=== PATIENT | male | born 1965 | race African-American/Black ===

== ENCOUNTER 2017-07-02 08:45 | Inpatient (IN) | payer BC ==
[2017-07-16] MEDS ORDERED: CEFAZOLIN/Water 2 GM/20 ML SYRINGE ONE (05:51)
[2017-07-16] MEDS ORDERED: Vancomycin HCl 1.5 GM in Sodium Chloride 0.9% 250 ML 300 ML IVPB SCH (06:00)
[2017-07-16] MEDS ORDERED: Fentanyl 100 MCG/2 ML VIAL ONE ×2 (06:17→06:54)
[2017-07-16] MEDS ORDERED: Midazolam HCl 2 mg/2 ml Vial ONE (06:17)
[2017-07-16] MEDS ORDERED: Bupivacaine HCl 0.5%/Epinephrine 1:200,000/PF 30 ml Vial ONE (06:54)
[2017-07-16] MEDS ORDERED: Ondansetron HCl/PF 4 MG/2 ML Vial IVP PRN ×6 (06:56→07:55)
[2017-07-16] MEDS ORDERED: Promethazine HCl 25 MG/ML VIAL SLOW IVP PRN ×4 (06:56→07:55)
[2017-07-16] MEDS ORDERED: Promethazine HCl 25 MG/ML VIAL IM PRN ×6 (06:56→07:55)
[2017-07-16] MEDS ORDERED: Bupivacaine 0.25% 10 ML VIAL EPIDURAL PRN (07:00)
[2017-07-16] MEDS ORDERED: HYDROcodone/Acetaminophen 5/325 mg Tablet PO PRN ×2 (07:00)
[2017-07-16] MEDS ORDERED: diphenhydrAMINE 25 MG CAP PO PRN ×2 (07:00→07:01)
[2017-07-16] MEDS ORDERED: diphenhydrAMINE 50 MG/ML VIAL IM PRN (07:00)
[2017-07-16] MEDS ORDERED: Hydrocerin (Eucerin) Cream 120 gm Jar TOP PRN (07:00)
[2017-07-16] MEDS ORDERED: Promethazine HCl 25 MG SUPP PR PRN (07:00)
[2017-07-16] MEDS ORDERED: Zolpidem Tartrate 5 MG TAB PO PRN ×2 (07:00→07:01)
[2017-07-16] MEDS ORDERED: traMADol HCl 50 MG TAB PO PRN ×3 (07:00→07:01)
[2017-07-16] MEDS ORDERED: Naloxone HCl 0.4 mg/ml Vial IV PRN (07:00)
[2017-07-16] MEDS ORDERED: diphenhydrAMINE 50 MG/ML VIAL IVP PRN (07:00)
[2017-07-16] MEDS ORDERED: fentaNYL Citrate/PF 1,250 MCG, Bupivacaine 25 ML in Sodium Chloride 0.9% 250 ML 200 ML EPIDURAL SCH (07:00)
[2017-07-16] MEDS ORDERED: Naloxone HCl 0.4 mg/ml Vial IVP PRN (07:00)
[2017-07-16] MEDS ORDERED: HYDROcodone/Acetaminophen 10/325 mg Tablet PO PRN ×2 (07:01)
[2017-07-16] MEDS ORDERED: Fentanyl 100 MCG/2 ML VIAL SLOW IVP PRN ×2 (07:01)
[2017-07-16] MEDS ORDERED: Acetaminophen 325 MG TAB PO PRN (07:01)
[2017-07-16] MEDS ORDERED: Tranexamic Acid 1,000 MG in Sodium Chloride 0.9% 100 ML IVPB SCH (07:15)
[2017-07-16] MEDS ORDERED: Meperidine HCl/PF 25 MG/ML VIAL ONE (09:29)
--- NOTE | 2017-07-16 10:10 | OP ---
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 OPERATIVE PROCEDURE: Press-fit left total hip arthroplasty. SURGEON: Hector Lau M.D. GRIDDLE COOK: Arturo Em PA-C ANESTHESIA: General via endotracheal tube augmented with indwelling epidural. COMPONENTS USED: [employer], Accolade pressfit size 3 hip stem with a Tritanium 54 mm press fit acetabular shell, 36 mm 10 degree polyethylene fixed bearing insert, 36 mm ceramic femoral head w ith a standard offset. FINDINGS: End-stage severe degenerative bicompartmental disease, bone on bone arthrosis, periarticul ar osteophyte formation, large serous effusion, hypertrophic synovium, and hypertrophic capsule. ESTIMATED BLOOD LOSS: 200 mL. DRAINS: None. SPECIMENS: None. COMPLICATIONS: None. COUNTS: Correct. INDICATIONS FOR SURGERY: Wes is a 51-year-old -[place] male who apparently had a nondispl aced hip fracture some years ago in 2004 and was treated conservatively. He subsequently developed e nd-stage bicompartmental arthrosis of the left hip and he has failed conservative management and elec gab to proceed with total hip arthroplasty as a definitive treatment of pain. PROCEDURE IN DETAIL: After informed consent was obtained in the preoperative holding area, the patie nt was taken to the operative suite where general anesthesia was induced. The patient was then posit ioned in the lateral decubitus position. The hip was then prepped and draped in usual sterile fashio n. The patient received preoperative antibiotics. Prior to incision, time-out was called and all me mbers of the surgical team agreed upon site, surgeon, and patient. After this, a longitudinal incisi on was made directly over the trochanter, noted by palpation extending 2 fingerbreadths above and bel ow the trochanter. The deeper subcutaneous layer was undermined with Bovie electrocautery. The ilio tibial band was encountered and incised sharply and the plane below this was developed bluntly. A eliazar retractor was placed to hold this opened. The lateral aspect of the trochanter and the abduct or muscles were encountered and then reflected anteriorly off the trochanter using Bovie electrocaute ry. Once this was completed, the anterior capsule was then encountered and identified and copious ca psulotomy was carried out, exposing the femoral neck and head. Dislocation maneuver was then performe d and an in situ provisional neck cut was then made using the oscillating saw. Attention was then tu rned to acetabular preparation and sequential reaming was carried out up to the appropriate diameter and a trial was then malleted into place with good firm resistance and no pullout. The permanent willow tabular shell was then malleted squarely into place, as was the appropriate liner. Once completed, t he wound was copiously irrigated and attention was then turned to femoral preparation. Flexion and ex ternal rotation was performed of the exposed thigh and femoral elevators were then placed at the prox imal aspect of the wound. Canal finder was used to establish the length of the canal and sequential reaming was carried out, followed by broaching. Once the appropriate stability was established with the trial broaches with both flexion, extension and rotational stability, we did trial with neutral a nd 2 mm offset incremental necks. Once the appropriate size was decided upon, with good stability no gab with flexion, extension, internal and external rotation and shuck being negative, we removed the femoral trial broach and malletted into place the permanent prosthesis with good firm fit, which was also stable to rotation. Again, the hip felt very stable to flexion, extension, internal and externa l rotation. Leg lengths appeared near anatomic clinically and we were quite happy with prosthesis pl acement. Copious irrigation was then carried out through the entirety of the wound. Primary closure of the abductors was accomplished with interrupted #2 Vicryl [id number] stitches and the IT ban d was then closed with interrupted #2 Vicryl, oversewn with a #2 running barbed Quill stitch. Subcut aneous fascia was closed with running barbed Quill stitch and a subcuticular Monocryl barbed Quill st itch was used for skin closure and augmented with skin cement. A sterile dressing was applied. The p rocedure was terminated without any complication. All counts were correct. The patient was awakened in the operative suite and taken to the recovery room in stable condition.
[2017-07-16] MEDS ORDERED: Meperidine HCl/PF 25 MG/ML VIAL SLOW IVP PRN (10:40)
--- NOTE | 2017-07-16 11:14 | RAD ---
LEFT HIP 2 VIEWS: Date: 07/16/17 HISTORY: 51-year-old male with history of postop total hip. FINDINGS: Total hip replacement changes are noted. No dislocation or periprosthetic fracture. IMPRESSION: Unremarkable postop left total hip replacement. POS: [facility]
[2017-07-16 12:06] VITALS: BMI 40.7
[2017-07-16] MEDS: Senokot S 8.6-50 MG TAB PO SCH ×2 (13:21→22:24)
[2017-07-16] MEDS: Multivitamin W/ Minerals 1 TAB PO SCH (13:21)
[2017-07-16] MEDS: Aspirin 325 MG TAB PO SCH ×2 (13:21→22:24)
[2017-07-16] MEDS: Ferrous Gluconate 324 MG TAB PO SCH ×2 (13:21→22:24)
[2017-07-16] MEDS: Sodium Chloride 0.9% 1,000 ML IV SCH ×2 (13:21→18:19)
[2017-07-16] MEDS: CEFAZOLIN/Water 2 GM/20 ML SYRINGE SLOW IVP SCH ×2 (14:27→22:26)
--- NOTE | 2017-07-16 16:34 | PDOC.PN ---
- Subjective Encounter Start Date: 07/16/17 Encounter Start Time: 15:00 Patient is seen today Post op Left Total hip replacmeent, Pt is seen in His room, alert and oriented on Fentanyl [employer]ARK ACTIVITIES COORDINATOR, stable, No other concenr snoted. Patient Is using Incentive spiromtery, Hospitalist is consulted for Medical management. - Objective MAR Reviewed: Yes Vital Signs & Weight: Vital Signs (12 hours) Temp Pulse Resp BP Pulse Ox 07/16/17 10:45 97.8 F 67 16 144/83 H 100 Weight Weight 276 lb I&O: 07/15/17 07/16/17 07/17/17 06:59 06:59 06:59 Intake Total 200 Output Total 450 Balance -250 Radiology Reviewed by me: Yes Phys Exam - Physical Examination HEENT: PERRLA, moist MMs Neck: no nodes, no JVD Respiratory: no wheezing, no rales Cardiovascular: RRR, no significant murmur Gastrointestinal: soft, non-tender Musculoskeletal: no edema, pulses present Neurological: non-focal, normal sensation Dx/Plan (1) Status post total hip replacement, left Code(s): Z96.642 - PRESENCE OF LEFT ARTIFICIAL HIP JOINT Status: Acute Comment: Will continue to monitor for any post Op complication with Dr. Lau for infection or bleeding and Drop in Blood presssures. (2) Moderate dehydration Code(s): E86.0 - DEHYDRATION Status: Acute Comment: Will encourage patient for oral hydration, continue on IV ringers lactate. (3) Constipation Code(s): K59.00 - CONSTIPATION, UNSPECIFIED Status: Acute Comment: Will do laxatives Colace dailye BID. Will encourage mobility with pt/OT. - Plan cont current plan of care, plan discussed w/ family, PT/OT, social work program coordinator, respiratory therapy, incentive spirometry, out of bed/ambulate, DVT proph w/ lovenox * . - Discharge Day Encounter end time: 15:45 Review of Systems - Review of Systems Eyes: negative: Pain, Vision Change, Conjunctivae Inflammation, Eyelid Inflammation, Redness, Other ENT: negative: Ear Pain, Ear Discharge, Nose Pain, Nose Discharge, Nose Congestion, Mouth Pain, Mouth Swelling, Throat Pain, Throat Swelling, Other Respiratory: negative: Cough, Dry, Shortness of Breath, Hemoptysis, SOB with Excertion, Pleuritic Pain, Sputum, Wheezing Cardiovascular: negative: chest pain, palpitations, orthopnea, paroxysmal nocturnal dyspnea, edema, light headedness, other Gastrointestinal: negative: Nausea, Vomiting, Abdominal Pain, Diarrhea, Constipation, Melena, Hematochezia, Other Genitourinary: negative: Dysuria, Frequency, Incontinence, Hematuria, Retention , Other Musculoskeletal: negative: Neck Pain, Shoulder Pain, Arm Pain, Back Pain, Hand Pain, Leg Pain, Foot Pain, Other Skin: negative: Rash, Lesions, Zach, Bruising, Other - Medications/Allergies Allergies/Adverse Reactions: Allergies Allergy/AdvReac Type Severity Reaction Status Date / Time No Known Allergies Allergy Verified 07/09/17 09:51 Medications: Current Medications Acetaminophen (Tylenol) 650 mg PO Q4H PRN PRN Reason: ORTEGA/ T > 101F; Mild Pain (1-3) Hydrocodone Bitart/Acetaminophen ([place] 5/325) 1 tab PO Q4H PRN PRN Reason: Mild Pain 0-3 Hydrocodone Bitart/Acetaminophen ([place] 5/325) 2 tab PO Q4H PRN PRN Reason: For Moderate Pain 4-6 Aspirin (Aspirin) 325 mg PO BID [facility] Last Admin: 07/16/17 13:21 Dose: Not Given Bupivacaine HCl (Marcaine) 5 ml EPIDURAL ONE PRN PRN Reason: UNCONTROLLED PAIN Stop: 07/26/17 07:01 Cefazolin Sodium (Ancef) 2 gm SLOW IVP Q8HR [facility] Stop: 07/16/17 22:01 Last Admin: 07/16/17 14:27 Dose: 2 gm Diphenhydramine HCl (Benadryl) 25 mg PO Q3H PRN PRN Reason: Itching Diphenhydramine HCl (Benadryl) 25 mg IM Q3H PRN PRN Reason: Itching Diphenhydramine HCl (Benadryl) 25 mg IVP Q3H PRN PRN Reason: Itching Diphenhydramine HCl (Benadryl) 25 mg PO Q6H PRN PRN Reason: Itching Emollient Cream (Hydrocerin Cream) 0 gm TOP PRN PRN PRN Reason: Itching Ferrous Gluconate (Fergon) 324 mg PO BID [facility] Last Admin: 07/16/17 13:21 Dose: Not Given Fentanyl Citrate 1,250 mcg/Bupivacaine HCl 25 ml/ Sodium Chloride 250 mls @ 8 mls/hr EPIDURAL INF [facility] Sodium Chloride (Normal Saline 0.9%) 1,000 mls @ 100 mls/hr IV .Q10H [facility] Last Admin: 07/16/17 13:21 Dose: Not Given Iron/Minerals/Multivitamins (Theragran M) 1 tab PO DAILY [facility] Last Admin: 07/16/17 13:21 Dose: Not Given Ketorolac Tromethamine (Toradol) 30 mg IVP Q6H PRN PRN Reason: Moderate Pain (4-6) Stop: 07/19/17 07:01 Naloxone HCl (Narcan) 0.2 mg IV Q5MIN PRN PRN Reason: RR <=8 OR OBTUNDED/UNAROUSABLE Naloxone HCl (Narcan) 0.1 mg IVP Q15MIN PRN PRN Reason: URINARY RETENTION Ondansetron HCl (Zofran) 4 mg IVP Q6H PRN PRN Reason: Nausea/Vomiting Ondansetron HCl (Zofran) 4 mg IVP Q6H PRN PRN Reason: Nausea/Vomiting Promethazine HCl (Phenergan) 12.5 mg IM Q4H PRN PRN Reason: Nausea Promethazine HCl (Phenergan Suppository) 25 mg UT Q4H PRN PRN Reason: Nausea/Vomiting Promethazine HCl (Phenergan) 12.5 mg IM Q4H PRN PRN Reason: Nausea/Vomiting Senna/Docusate Sodium (Senokot S) 2 tab PO BID [facility] Last Admin: 07/16/17 13:21 Dose: Not Given Sodium Chloride (Flush - Normal Saline) 10 ml IVF PRN PRN PRN Reason: Saline Flush Tramadol HCl (Ultram) 50 mg PO Q6H PRN PRN Reason: Mild Pain 1-3 Tramadol HCl (Ultram) 100 mg PO Q6H PRN PRN Reason: Moderate Pain 4-6 Zolpidem Tartrate (Ambien) 5 mg PO HSPRN PRN PRN Reason: Insomnia
[2017-07-16] MEDS ORDERED: Lidocaine 1% PF 5 ML VIAL ONE (16:43)
[2017-07-16] MEDS ORDERED: Ketorolac Tromethamine 30 MG/ML VIAL ONE (16:43)
[2017-07-16] MEDS ORDERED: Glycopyrrolate 0.2 MG/ML 5 ML SYRINGE ONE (16:43)
[2017-07-16] MEDS ORDERED: PROPOFOL 200 MG/20 ML VIAL ONE (16:43)
[2017-07-16] MEDS ORDERED: Ondansetron HCl/PF 4 MG/2 ML Vial ONE (16:43)
[2017-07-17] MEDS: Sodium Chloride 0.9% 1,000 ML IV SCH ×2 (03:20→15:04)
[2017-07-17 04:23] LABS: Hemoglobin 13.2 g/dL (14.0-18.0); Mean Corpuscular HGB CONC 33.4 g/dL (32.0-36.0); Mean Corpuscular Hemoglobin 30.4 pg (27.0-31.0); Mean Corpuscular Volume 91.2 fl (80.0-94.0); Mean Platelet Volume 9.8 fL (7.4-10.4); Platelet Count 130 thou/uL (130-400); RBC Distribution Width 12.4 % (11.5-14.5); Red Blood Cell (RBC) Count 4.33 mill/uL (4.70-6.10); White Blood Cell (WBC) Count 10.9 thou/uL (4.8-10.8)
[2017-07-17] MEDS: Aspirin 325 MG TAB PO SCH ×2 (08:03→19:43)
[2017-07-17] MEDS: Senokot S 8.6-50 MG TAB PO SCH ×2 (08:03→19:43)
[2017-07-17] MEDS: Ferrous Gluconate 324 MG TAB PO SCH ×2 (08:03→19:43)
[2017-07-17] MEDS: Ketorolac Tromethamine 30 MG/ML VIAL IVP PRN ×2 (08:03→22:30)
[2017-07-17] MEDS: Multivitamin W/ Minerals 1 TAB PO SCH (08:04)
[2017-07-17 23:59] VITALS: TEMP 99
[2017-07-18] MEDS: Sodium Chloride 0.9% 1,000 ML IV SCH ×2 (00:28→13:03)
[2017-07-18 05:12] LABS: Hemoglobin 12.5 g/dL (14.0-18.0); Mean Corpuscular HGB CONC 32.5 g/dL (32.0-36.0); Mean Corpuscular Hemoglobin 29.8 pg (27.0-31.0); Mean Corpuscular Volume 91.5 fl (80.0-94.0); Mean Platelet Volume 9.8 fL (7.4-10.4); Platelet Count 112 thou/uL (130-400); RBC Distribution Width 12.2 % (11.5-14.5); Red Blood Cell (RBC) Count 4.21 mill/uL (4.70-6.10); White Blood Cell (WBC) Count 12.7 thou/uL (4.8-10.8)
[2017-07-18] MEDS: Senokot S 8.6-50 MG TAB PO SCH (07:42)
[2017-07-18] MEDS: Multivitamin W/ Minerals 1 TAB PO SCH (07:42)
[2017-07-18] MEDS: Ferrous Gluconate 324 MG TAB PO SCH (07:42)
[2017-07-18] MEDS: Aspirin 325 MG TAB PO SCH (07:42)
[2017-07-18 08:11] VITALS: BP 149/89
--- NOTE | 2017-07-20 09:16 | PDOC.PN ---
- Subjective Encounter Start Date: 07/17/17 Encounter Start Time: 10:00 Anne Marietent seen today, had Shower this morning, No concern noted, getting ready to go Home. - Objective MAR Reviewed: Yes Vital Signs & Weight: Weight Admit Weight 276 lb Weight 276 lb I&O: 07/19/17 07/20/17 07/21/17 06:59 06:59 06:59 Intake Total 600 Output Total 1500 Balance -900 Result Diagrams: 07/18/17 04:22 Phys Exam - Physical Examination HEENT: PERRLA, moist MMs Neck: no nodes, no JVD Respiratory: no wheezing, no rales Cardiovascular: RRR, no significant murmur Gastrointestinal: soft, non-tender Musculoskeletal: no edema, pulses present Dx/Plan (1) Status post total hip replacement, left Code(s): Z96.642 - PRESENCE OF LEFT ARTIFICIAL HIP JOINT Status: Acute Comment: No post Op complication noted. Pt is sbale to go home from medical stand point. (2) Moderate dehydration Code(s): E86.0 - DEHYDRATION Status: Acute Comment: well hydrated. Will sign off today. (3) Constipation Code(s): K59.00 - CONSTIPATION, UNSPECIFIED Status: Acute Comment: Will do laxatives Colace dailye BID. Will encourage mobility with pt/OT. - Plan cont current plan of care, plan discussed w/ family, PT/OT * . - Discharge Day Encounter end time: 10:35 Review of Systems - Review of Systems Eyes: negative: Pain, Vision Change, Conjunctivae Inflammation, Eyelid Inflammation, Redness, Other ENT: negative: Ear Pain, Ear Discharge, Nose Pain, Nose Discharge, Nose Congestion, Mouth Pain, Mouth Swelling, Throat Pain, Throat Swelling, Other Respiratory: negative: Cough, Dry, Shortness of Breath, Hemoptysis, SOB with Excertion, Pleuritic Pain, Sputum, Wheezing Cardiovascular: negative: chest pain, palpitations, orthopnea, paroxysmal nocturnal dyspnea, edema, light headedness, other Gastrointestinal: negative: Nausea, Vomiting, Abdominal Pain, Diarrhea, Constipation, Melena, Hematochezia, Other Musculoskeletal: negative: Neck Pain, Shoulder Pain, Arm Pain, Back Pain, Hand Pain, Leg Pain, Foot Pain, Other - Medications/Allergies Allergies/Adverse Reactions: Allergies Allergy/AdvReac Type Severity Reaction Status Date / Time No Known Allergies Allergy Verified 07/09/17 09:51
== END 2017-07-18 14:44 | disposition home or self-care (01) | DRG 470 ==
LOC: SJJU 07-16 05:27
PROVIDERS: ADMIT Orthopaedic Surgery; ATTEND Orthopaedic Surgery
PROC: 0SRB04A Replacement of Left Hip Joint with Ceramic on Polyethylene Synthetic Substitute, Uncemented, Open Approach (ICD-10-PCS; principal; 2017-07-16)
DX: M16.12 Unilateral primary osteoarthritis, left hip (principal); E78.5 Hyperlipidemia, unspecified; E86.0 Dehydration; K59.00 Constipation, unspecified
CPT/HCPCS: 36415; 85027; 85610; 85730; G8978-GP-CK; G8979-GP-CI; G8987-GO-CJ; G8988-GO-CI; J0670; J1885; J2001; J2175; J2250; J2405; J2704; J3010; J3370; J3490; J7050

== ENCOUNTER 2017-07-09 09:25 | Outpatient (CLI) | payer BC ==
[2017-07-09 10:48] LABS: Bilirubin Negative (Negative); Blood, Urine Negative (Negative); Clarity CLEAR (Clear); Glucose, Urine (Dipstick) Negative (Negative); Leukocyte Negative (Negative); Nitrite Negative (Negative); Protein, Urine (Dipstick) Negative (Neg-Trace); Specific Gravity, Urine 1.021 (1.002-1.036); Urobilinogen 0.2 mg/dL (0.2-1.0)
[2017-07-09 10:52] LABS: Bacteria/HPF None Seen HPF (None Seen); Hyaline Casts/LPF 0-3 HYALINE CAST LPF (0-3 Hyaline); RBC/HPF 0-3 HPF (0-3); Squamous Epithelial 0-3 HPF (0-3); WBC/HPF 0-3 HPF (0-3)
[2017-07-09 14:02] LABS: Hemoglobin 14.8 g/dL (14.0-18.0); Mean Corpuscular HGB CONC 31.3 g/dL (32.0-36.0); Mean Corpuscular Hemoglobin 29.6 pg (27.0-31.0); Mean Corpuscular Volume 94.3 fl (80.0-94.0); Mean Platelet Volume 10.5 fL (7.4-10.4); Platelet Count 170 thou/uL (130-400); RBC Distribution Width 12.6 % (11.5-14.5); White Blood Cell (WBC) Count 9.3 thou/uL (4.8-10.8)
[2017-07-09 14:20] LABS: Anion Gap 7 mmol/L (10-20); BUN (Urea Nitrogen) 17 mg/dL (8.9-20.6); Calc. Creatinine Clearance 0 mL/min (70-130); Calcium 9.4 mg/dL (7.8-10.44); Carbon Dioxide 30 mmol/L (22-29); Chloride 103 mmol/L (98-107); Estimated GFR-MDRD Greater than 90; Glucose 94 mg/dL (70-105); Potassium 3.8 mmol/L (3.5-5.1); Sodium 136 mmol/L (136-145)
--- NOTE | 2017-07-10 07:56 | EKG ---
Test Reason : Blood Pressure : / mmHG Vent. Rate : 065 BPM Atrial Rate : 065 BPM P-R Int : 208 ms QRS Dur : 098 ms QT Int : 426 ms P-R-T Axes : 044 026 002 degrees QTc Int : 443 ms Normal sinus rhythm Minimal voltage criteria for LVH, may be normal variant Borderline ECG When compared with ECG of 15-FEB-2012 13:41, UT interval has decreased ST no longer elevated in Anterior leads Confirmed by MOUNIKA RODRIGUEZ ([id number]) on 07/10/2017 7:56:06 AM Referred By: MARK Confirmed By:MOUNIKA RODRIGUEZ
--- NOTE | 2017-07-12 12:17 | RAD ---
AP CHEST: History: Pre-operative chest radiograph. FINDINGS/IMPRESSION: The lungs are well aerated. No evidence of active intrathoracic disease seen. No evidence of effusion s, pneumonia, or pneumothorax is seen. POS: [facility]
== END 2017-07-09 09:26 | disposition home or self-care (01) ==
LOC: LABBT 09:25
PROVIDERS: ATTEND Orthopaedic Surgery
DX: Z01.818 Encounter for other preprocedural examination (principal); M16.12 Unilateral primary osteoarthritis, left hip
CPT/HCPCS: 71046; 80048; 81001; 85027; 86850; 86900; 86901; 87081; 93005; 93010

== ENCOUNTER 2020-01-28 07:20 | Outpatient (CLI) | payer BC, OTHER ==
[2020-01-28 10:45] LABS: #Basophils 0.1 10x3/uL (0.0-0.2); #Eosinphils 0.2 10x3/uL (0.0-0.5); #Monocytes 0.8 10x3/uL (0.0-1.1); #Neutrophils 6.9 10x3/uL (1.5-8.4); %Basophils 0.5 % (0.0-2.0); %Eosinophils 2.5 % (0.0-6.0); %Monocytes 7.9 % (0.0-10.0); %Neutrophils 72.7 % (40.0-75.0); Hemoglobin 15.4 g/dL (14.0-18.0); Mean Corpuscular HGB CONC 32.3 G/DL (32.0-36.0); Mean Corpuscular Hemoglobin 28.8 PG (27.0-33.0); Mean Corpuscular Volume 89.3 fl (80.0-100.0); Mean Platelet Volume 12.3 fl (7.4-10.4); Platelet Count 184 10x3/uL (130-400); Red Blood Cell (RBC) Count 5.34 10x6/uL (4.40-5.80); White Blood Cell (WBC) Count 9.5 10x3/uL (4.5-11.0)
[2020-01-28 11:02] LABS: Prothrombin Time 10.9 sec (9.5-12.1)
[2020-01-28 11:41] LABS: Anion Gap 16 mmol/L (10-20); BUN (Urea Nitrogen) 20 mg/dL (8.4-25.7); Calc. Creatinine Clearance 0 mL/min (70-130); Calcium 9.3 mg/dL (7.8-10.44); Carbon Dioxide 25 mmol/L (22-29); Chloride 104 mmol/L (98-107); Estimated GFR-MDRD 89; Glucose 101 mg/dL (70-105); Potassium 4.5 mmol/L (3.5-5.1); Sodium 140 mmol/L (136-145)
[2020-01-28 18:15] LABS: SARS-CoV-2 MS2 Positive; SARS-CoV-2 N Gene Negative; SARS-CoV-2 S Gene Negative; SARS-CoV-2 by NAA Not Detected (NotDetected); SARS-CoV-2 orf1ab Negative
== END 2020-01-28 07:21 | disposition home or self-care (01) ==
LOC: LABBT 07:20
PROVIDERS: ATTEND Orthopaedic Surgery
DX: Z01.812 Encounter for preprocedural laboratory examination (principal); Z20.828 Contact with and (suspected) exposure to other viral communicable diseases; T84.89XA Other specified complication of internal orthopedic prosthetic devices, implants and grafts, initial encounter
CPT/HCPCS: 80048; 85025; 85610; 87081; 87635; U0003

== ENCOUNTER 2020-01-28 09:30 | Inpatient (IN) | payer BC ==
[2020-02-01 14:37] VITALS: BMI 39.9
[2020-02-02] MEDS ORDERED: Tranexamic Acid 1,000 MG/10 ML VIAL ONE (09:43)
[2020-02-02] MEDS ORDERED: Sodium Chloride 0.9% 100 ML ONE (09:43)
[2020-02-02] MEDS ORDERED: Vancomycin 1.5 GRAM/300 ML BAG ONE (09:43)
[2020-02-02] MEDS ORDERED: Fentanyl 100 MCG/2 ML VIAL SLOW IVP PRN ×2 (11:14)
[2020-02-02] MEDS ORDERED: Acetaminophen 325 MG TAB PO PRN (11:14)
[2020-02-02] MEDS ORDERED: Zolpidem Tartrate 5 MG TAB PO PRN ×2 (11:14→11:45)
[2020-02-02] MEDS ORDERED: Ondansetron PF 4 MG/2 ML Vial IVP PRN ×2 (11:14→11:45)
[2020-02-02] MEDS ORDERED: Promethazine HCl 25 MG/ML VIAL IM PRN ×3 (11:14→12:06)
[2020-02-02] MEDS ORDERED: HYDROcodone/Acetaminophen 10/325 mg Tablet PO PRN ×2 (11:14)
[2020-02-02] MEDS ORDERED: diphenhydrAMINE 25 MG CAP PO PRN ×2 (11:14→11:45)
[2020-02-02] MEDS ORDERED: Bupivacaine/Epinephrine 0.25% 30 ML VIAL ONE (11:18)
[2020-02-02] MEDS ORDERED: Fentanyl 100 MCG/2 ML VIAL ONE (11:19)
[2020-02-02] MEDS ORDERED: diphenhydrAMINE 50 MG/ML VIAL IVP PRN (11:45)
[2020-02-02] MEDS ORDERED: HYDROcodone/Acetaminophen 5/325 mg Tablet PO PRN (11:45)
[2020-02-02] MEDS ORDERED: Bupivacaine 0.25% 10 ML VIAL EPIDURAL PRN (11:45)
[2020-02-02] MEDS ORDERED: traMADol HCl 50 MG TAB PO PRN ×2 (11:45)
[2020-02-02] MEDS ORDERED: Promethazine HCl 25 MG SUPP PR PRN (11:45)
[2020-02-02] MEDS ORDERED: Naloxone HCl 0.4 mg/ml Vial IV PRN (11:45)
[2020-02-02] MEDS ORDERED: diphenhydrAMINE 50 MG/ML VIAL IM PRN (11:45)
[2020-02-02] MEDS ORDERED: Naloxone HCl 0.4 mg/ml Vial IVP PRN (11:45)
[2020-02-02] MEDS ORDERED: Hydrocerin (Eucerin) Cream 120 gm Jar TOP PRN (11:45)
[2020-02-02] MEDS ORDERED: HYDROmorphone 2 MG/ML VIAL SLOW IVP PRN (12:06)
[2020-02-02] MEDS ORDERED: Meperidine HCl/PF 25 MG/ML VIAL SLOW IVP PRN (12:06)
[2020-02-02] MEDS ORDERED: Promethazine HCl 25 MG/ML VIAL SLOW IVP PRN (12:06)
[2020-02-02] MEDS ORDERED: EPHEDRINE 25 MG/5 ML SYRINGE ONE (12:47)
[2020-02-02] MEDS ORDERED: Lidocaine 1% PF 5 ML VIAL ONE (12:47)
[2020-02-02] MEDS ORDERED: Glycopyrrolate 0.2 MG/ML 5 ML SYRINGE ONE (12:47)
[2020-02-02] MEDS ORDERED: Rocuronium Bromide 10 MG/ML (10ML VIAL) ONE (12:47)
[2020-02-02] MEDS ORDERED: PHENYLEPHRINE-NS 100 MCG/ML 10 ML SYRINGE ONE ×2 (12:47→13:13)
[2020-02-02] MEDS ORDERED: Lidocaine 1.5% w/Epi 1:200K 30 ML VIAL (Epid Use) ONE (12:47)
[2020-02-02] MEDS ORDERED: Ondansetron PF 4 MG/2 ML Vial ONE (12:47)
[2020-02-02] MEDS ORDERED: PROPOFOL 200 MG/20 ML VIAL ONE (12:47)
[2020-02-02] MEDS ORDERED: Ketorolac Tromethamine 30 MG/ML VIAL IM SCH (14:00)
--- NOTE | 2020-02-02 17:16 | RAD ---
LEFT HIP TWO VIEWS: 02/02/20 HISTORY: Postop. COMPARISON: 07/16/17 study. There has been placement of a new left hip prosthesis. A larger stem component than the previous pros thesis. No fracture. IMPRESSION: Postop changes of the left hip. POS: [facility]
--- NOTE | 2020-02-02 17:59 | OP ---
DATE OF PROCEDURE: 02/02/2020 TITLE OF PROCEDURE: Revision total hip arthroplasty using [employer] Modular tapered 15-mm stem with a +10, 19 body, +4 ceramic head with an MDM head on top of that with MDM acetabulum. HYDROTREATER OPERATOR: Pedro Parsons PA-C BLOOD LOSS: About 300. SPECIMENS: None. DRAINS: None. COMPLICATIONS: None. The assistant press operator/co-surgeon was present through the entire procedure and was responsible for providing exposure, tissue retraction and any necessary limb or tissue manipulation required to obtain necessary reduction or hardware placement. The assistant press operator/co-surgeon also provided bleeding control, tissue closure, and suturing in conjunction with the primary surgeon. DESCRIPTION OF PROCEDURE: The patient was taken to the operating room where he received Ancef and vancomycin preoperatively and he was placed in right lateral decubitus position. Left hip was prepped and draped in sterile fashion from toes to the ribcage. I opened up his old incision, extended proximally and distally. Dissection carried down through, quite a bit of adipose tissue to the IT band, which was divided distally and extended proximally. Self-retaining retractor was placed. Abductor mechanism was identified. I took down the anterior 3rd of the abductors, resected capsule from the hip joint. The hip itself was full of blood, indicating a possible recent fracture, although I did not see any fracture of the femoral shaft. There could have been some fracture around the neck due to subsidence of the stem. The head was removed, shows an exposure of the stem. The stem was then removed with the series of osteotomes and extracted, exposed the acetabulum circumferentially, removed the polyethylene liner, placed MDM liner in place after confirming that the acetabulum was quite stable. The femur was cleaned with a curette and reamed with a centralizing reamer and then a lateralizing reamer. I then reamed sequentially up to size 15 mm with a very good press-fit and very good axial stability with this 15-mm reamer. I went ahead and reamed it down as he had a standard +10 just to give me the ability to go up or down on the body size as I need it, Reamed for 19 mm body and a 19 mm body with +4 head length. It gave good stability throughout the range of motion with good soft tissue tension, possibly still a little bit short but even quite a bit short for a long time. I was concerned about length and causing nerve damage. I impacted the permanent 19-mm body onto the stem and then tightened up the locking screw to 150 Nm. The head was applied after being assembled on the back table. Hip was reduced. This was stable in all directions. Irrigation performed. The abductor was repaired with #5 Ethibond and #2 Vicryl. The IT band was repaired with #2 Vicryl and #2 Quill. Subcu closed with 2-0 Vicryl and 0 Quill and the skin was closed with 2-0 Prolene. A sterile dressing was applied. There were no complications. Job ID: [id number]
[2020-02-02] MEDS: Ketorolac Tromethamine 30 MG/ML VIAL IVP SCH ×3 (18:34→23:27)
[2020-02-02] MEDS: Sodium Chloride 0.9% 1,000 ML IV SCH ×2 (18:40→23:58)
[2020-02-02] MEDS: CEFAZOLIN 2 GM in Premix Bag 1 BAG IVPB SCH (18:41)
[2020-02-02] MEDS: HYDROcodone/Acetaminophen 5/325 mg Tablet PO PRN (18:45)
[2020-02-02] MEDS ORDERED: Vancomycin 1.5 GRAM/300 ML BAG 1.5 GM in Premix Bag 1 BAG IVPB SCH (20:00)
[2020-02-02] MEDS: Aspirin 81 mg Enteric Coated Tablet PO SCH (20:22)
[2020-02-02] MEDS ORDERED: Cepastat Lozenges 1 LOZ PO PRN (23:42)
[2020-02-03] MEDS: CEFAZOLIN 2 GM in Premix Bag 1 BAG IVPB SCH (02:55)
[2020-02-03 05:53] LABS: Hemoglobin 13.4 g/dL (14.0-18.0); Mean Corpuscular HGB CONC 32.5 g/dL (32.0-36.0); Mean Corpuscular Hemoglobin 29.9 pg (27.0-31.0); Mean Corpuscular Volume 92.1 fL (78.0-98.0); Mean Platelet Volume 10.4 fL (7.4-10.4); Platelet Count 131 thou/uL (130-400); RBC Distribution Width 12.5 % (11.5-14.5); Red Blood Cell (RBC) Count 4.49 mill/uL (4.70-6.10); White Blood Cell (WBC) Count 10.5 thou/uL (4.8-10.8)
[2020-02-03] MEDS: Ketorolac Tromethamine 30 MG/ML VIAL IVP SCH ×4 (06:31→23:22)
[2020-02-03] MEDS: fentaNYL Citrate/PF 500 MCG, Bupivacaine 10 ML in Sodium Chloride 0.9% 80 ML EPIDURAL SCH ×2 (06:33→18:34)
[2020-02-03] MEDS: Sodium Chloride 0.9% 1,000 ML IV SCH ×2 (07:30→12:47)
[2020-02-03] MEDS: Ferrous Gluconate 324 MG TAB PO SCH ×2 (09:50→20:35)
[2020-02-03] MEDS: Multivitamin W/ Minerals 1 TAB PO SCH (09:50)
[2020-02-03] MEDS: Senokot S 8.6-50 MG TAB PO SCH ×2 (09:50→20:35)
[2020-02-03] MEDS: Aspirin 81 mg Enteric Coated Tablet PO SCH ×2 (09:50→20:35)
[2020-02-03] MEDS: HYDROcodone/Acetaminophen 5/325 mg Tablet PO PRN ×3 (09:51→23:21)
[2020-02-04] MEDS: Sodium Chloride 0.9% 1,000 ML IV SCH (00:34)
[2020-02-04] MEDS: Ketorolac Tromethamine 30 MG/ML VIAL IVP SCH (06:10)
[2020-02-04] MEDS: Senokot S 8.6-50 MG TAB PO SCH (08:43)
[2020-02-04] MEDS: Ferrous Gluconate 324 MG TAB PO SCH (08:44)
[2020-02-04] MEDS: Multivitamin W/ Minerals 1 TAB PO SCH (08:44)
[2020-02-04] MEDS: Aspirin 81 mg Enteric Coated Tablet PO SCH (08:44)
[2020-02-04] MEDS: HYDROcodone/Acetaminophen 5/325 mg Tablet PO PRN (08:45)
[2020-02-04 12:52] VITALS: BP 135/86; TEMP 98
== END 2020-02-04 13:10 | disposition home or self-care (01) | DRG 468 ==
LOC: SJJU 02-02 08:27 → SURG A 02-02 17:28
PROVIDERS: ADMIT Orthopaedic Surgery; ATTEND Orthopaedic Surgery
PROC: 0SRB0JA Replacement of Left Hip Joint with Synthetic Substitute, Uncemented, Open Approach (ICD-10-PCS; principal; 2020-02-02)
PROC: 0SPB0JZ Removal of Synthetic Substitute from Left Hip Joint, Open Approach (ICD-10-PCS; 2020-02-02)
DX: T84.091A Other mechanical complication of internal left hip prosthesis, initial encounter (principal); Z20.828 Contact with and (suspected) exposure to other viral communicable diseases; Z96.642 Presence of left artificial hip joint; Y83.8 Other surgical procedures as the cause of abnormal reaction of the patient, or of later complication, without mention of misadventure at the time of the procedure; I10 Essential (primary) hypertension; I25.10 Atherosclerotic heart disease of native coronary artery without angina pectoris; E11.9 Type 2 diabetes mellitus without complications; E66.9 Obesity, unspecified; M19.90 Unspecified osteoarthritis, unspecified site; Z68.39 Body mass index [BMI] 39.0-39.9, adult; Z79.899 Other long term (current) drug therapy
CPT/HCPCS: 36415; 85027; 87086; C1776; J0690; J1885; J2001; J2405; J2704; J3010; J3370; J3490